=== PATIENT | female | born 1950 | race Hispanic/Latino ===

== ENCOUNTER 2017-11-14 10:45 | Outpatient (CLI) | payer MEDICARE | END 2017-11-14 10:46 | disposition home or self-care (01) | LOC: BICMAMMO 10:45 | PROVIDERS: ATTEND Internal Medicine | DX: Z12.31 Encounter for screening mammogram for malignant neoplasm of breast (principal) | CPT/HCPCS: 77063; 77067 ==

== ENCOUNTER 2018-11-23 08:40 | Outpatient (CLI) | payer MEDICARE ==
--- NOTE | 2018-11-23 09:12 | BD ---
EXAM: DEXA bone density examination HISTORY: 68-year-old postmenopausal female for screening COMPARISON: 08/29/2014 FINDINGS: L1--bone mineral density 1.065 g/sq cm; T score 0.7 L2--bone mineral density 1.050 g/sq cm; T score 0.2 L3--bone mineral density 1.171 g/sq cm; T score 0.8 L4--bone mineral density 1.229 g/sq cm; T score 1.5 Total L1-L4--bone mineral density 1.135 g/sq cm; T score 0.8 Left femoral neck--bone mineral density0.764; T score -0.8 Total proximal left femur--bone mineral density 0.978; T score 0.3 IMPRESSION: Normal bone density. When compared to the prior examination, the bone density in the hip has decreased approximately 3% and the bone density in the spine has not changed significantly.
--- NOTE | 2018-11-23 09:38 | MMO ---
Bilateral MAMMO Bilat Screen [id number]. CLINICAL HISTORY: Patient is 68 years old and is seen for screening. The patient has no family history of breast cancer. The patient has no personal history of cancer. VIEWS: The views performed were: bilateral craniocaudal with tomosynthesis and bilateral mediolateral oblique with tomosynthesis. FILMS COMPARED: The present examination has been compared to prior imaging studies performed at 12/28/2007 and 11/14/2017. This study has been interpreted with the assistance of computer-aided detection. MAMMOGRAM FINDINGS: There are scattered fibroglandular densities. There are no suspicious masses, suspicious calcifications, or new areas of architectural distortion. IMPRESSION: THERE IS NO MAMMOGRAPHIC EVIDENCE OF MALIGNANCY. A ROUTINE FOLLOW-UP MAMMOGRAM IN 1 YEAR IS RECOMMENDED. THE RESULTS OF THIS EXAM WERE SENT TO THE PATIENT. ACR BI-RADS Category 1 - Negative MAMMOGRAPHY NOTE: 1. A negative mammogram report should not delay a biopsy if a dominant of clinically suspicious mass is present. 2. Approximately 10% to 15% of breast cancers are not detected by mammography. 3. Adenosis and dense breasts may obscure an underlying neoplasm. Reported by: MANNY JI MD Electonically Signed: [id number]
== END 2018-11-23 08:41 | disposition home or self-care (01) ==
LOC: BICMAMMO 08:40
PROVIDERS: ATTEND Internal Medicine
DX: Z12.31 Encounter for screening mammogram for malignant neoplasm of breast (principal); Z78.0 Asymptomatic menopausal state
CPT/HCPCS: 77063; 77067; 77080

== ENCOUNTER 2020-11-27 07:09 | Outpatient (CLI) | payer MEDICARE | END 2020-11-27 07:10 | disposition home or self-care (01) | LOC: BICULT 07:09 | PROVIDERS: ATTEND Internal Medicine | DX: Z12.31 Encounter for screening mammogram for malignant neoplasm of breast (principal); Z13.820 Encounter for screening for osteoporosis; R13.10 Dysphagia, unspecified; M85.80 Other specified disorders of bone density and structure, unspecified site; Z78.0 Asymptomatic menopausal state | CPT/HCPCS: 76536; 77063; 77067; 77080 ==

== ENCOUNTER 2022-12-27 09:12 | Outpatient (CLI) | payer MEDICARE | END 2022-12-27 09:13 | disposition home or self-care (01) | LOC: BICMAMMO 09:12 | PROVIDERS: ATTEND Internal Medicine | DX: Z12.31 Encounter for screening mammogram for malignant neoplasm of breast (principal) | CPT/HCPCS: 77063; 77067 ==

== ENCOUNTER 2023-08-10 07:04 | Outpatient (CLI) | payer MEDICARE | END 2023-08-10 07:05 | disposition home or self-care (01) | LOC: BICULT 07:04 | PROVIDERS: ATTEND Internal Medicine | DX: R74.01 Elevation of levels of liver transaminase levels (principal) | CPT/HCPCS: 76700 ==